=== PATIENT | female | born 1945 | race American Indian/Alaskan Native ===

== ENCOUNTER 2017-10-06 12:44 | Emergency (ER) | payer SELFPAY ==
[2017-10-06 13:20] VITALS: BP 167/86
[2017-10-06 13:44] LABS: Basophils % (Auto) 0.2 % (0.0-1.8); Eosinophils # (Auto) 0.1 K/mm3 (0.0-0.4); Hematocrit 38.5 % (30.3-42.9); Hemoglobin 12.5 gm/dl (10.1-14.3); Lymphocytes # (Auto) 2.8 K/mm3 (1.2-5.4); Lymphocytes % (Auto) 34.5 % (13.4-35.0); Mean Corpuscular HGB Conc 32 % (30-34); Mean Corpuscular Hemoglobin 28 pg (28-32); Mean Corpuscular Volume 86 fl (79-97); Monocytes # (Auto) 0.6 K/mm3 (0.0-0.8); Monocytes % (Auto) 7.4 % (0.0-7.3); Platelet Count 200 K/mm3 (140-440); Red Blood Count 4.46 M/mm3 (3.65-5.03); Red Cell Distribution Width 15.7 % (13.2-15.2)
[2017-10-06 14:02] LABS: BUN/Creatinine Ratio 13; Blood Urea Nitrogen 12 mg/dL (7-17); Calcium 9.3 mg/dL (8.4-10.2); Hemolysis Index 5
== END 2017-10-06 19:38 | disposition left against medical advice (07) ==
LOC: ED 12:44
DX: Z53.21 Procedure and treatment not carried out due to patient leaving prior to being seen by health care provider (principal)
CPT/HCPCS: 36415; 80048; 84484; 85025; 93005; 93010

== ENCOUNTER 2022-04-25 14:06 | Outpatient (CLI) | payer MEDICARE ==
--- NOTE | 2022-04-25 17:12 | XRay Report ---
RIGHT SHOULDER 3 VIEW(S) INDICATION / CLINICAL INFORMATION: M25.511, E11.9. COMPARISON: None available. FINDINGS: BONES / JOINT(S): No acute fracture or subluxation. 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 SOFT TISSUES: No significant abnormality. ADDITIONAL FINDINGS: None. IMPRESSION: 1. No acute findings. 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
== END 2022-04-25 14:07 | disposition home or self-care (01) ==
LOC: XRAY 14:06
PROVIDERS: ATTEND Nurse Practitioner Family
DX: M19.011 Primary osteoarthritis, right shoulder (principal); E11.9 Type 2 diabetes mellitus without complications

== ENCOUNTER 2022-05-07 09:51 | Outpatient (CLI) | payer MEDICARE | END 2022-05-07 09:52 | disposition home or self-care (01) | LOC: ECHO 09:51 | PROVIDERS: ATTEND Nurse Practitioner Family | DX: I08.8 Other rheumatic multiple valve diseases (principal); I10 Essential (primary) hypertension | CPT/HCPCS: 93306; C8929 ==